=== PATIENT | female | born 1995 | race Caucasian/White ===

== ENCOUNTER 2017-01-30 17:41 | Emergency (ER) | payer BC, OTHER ==
[~2017-01-30] VITALS: Ht 165.1 cm; Wt 57.0 kg
[~2017-01-30 17:41] MED LIST: ALBUAER3 INH; JUNETAB PO; NITR100C4 PO
[2017-01-30 17:43] VITALS: BP 135/75; PULSE 93; RESP 20; TEMP 98.5; O2SAT 99
[2017-01-30 19:01] LABS: BLOOD, URINE TRACE (NEG); COMMENT (UR) CULT NOT INDICATED; CULTURE IF INDICATED CULT NOT INDICATED; GLUCOSE,URINE NEG (NEG); KETONE, URINE 10 mg/dL (NEG); MUCUS URINE FEW /lpf (OCC); NITRITE,URINE NEG (NEG); SQUAMOUS EPITHELIAL CELL URINE 8 /hpf (0-5)
[2017-01-30 19:03] LABS: URINE COLOR DARK-YELLOW (YELLW/STRAW)
--- NOTE | 2017-01-30 19:30 | RADRPT ---
EXAM DATE/TIME: 01/30/2017 19:14 [place] COMPARISON: No previous studies available for comparison. INDICATIONS : Bilateral flank pain. ORAL CONTRAST: No oral contrast ingested. RADIATION DOSE: 13.28 CTDIvol (mGy) MEDICAL HISTORY : Renal calculi. SURGICAL HISTORY : None. ENCOUNTER: Initial ACUITY: 3 days PAIN SCALE: 8/10 LOCATION: Bilateral flank TECHNIQUE: Volumetric scanning of the abdomen and pelvis was performed. Using automated exposure control and ad justment of the mA and/or kV according to patient size, radiation dose was kept as low as reasonably achievable to obtain optimal diagnostic quality images. DICOM format image data is available electro nically for review and comparison. FINDINGS: LOWER LUNGS: The visualized lower lungs are clear. LIVER: Homogeneous density without lesion. There is no dilation of the biliary tree. No calcified gallston es. SPLEEN: Normal size without lesion. PANCREAS: Within normal limits. KIDNEYS: Normal in size and shape. There is no mass, stone, or hydronephrosis. Both kidneys have slightly inc reased density in the medullary pyramid region and medullary calcinosis is not excludable. ADRENAL GLANDS: Within normal limits. VASCULAR: There is no aortic aneurysm. BOWEL/MESENTERY: The stomach, small bowel, and colon demonstrate no acute abnormality. There is no free intraperitone al air or fluid. The appendix is well-visualized, normal. ABDOMINAL WALL: Within normal limits. RETROPERITONEUM: There is no lymphadenopathy. BLADDER: No wall thickening or mass. REPRODUCTIVE: Within normal limits. INGUINAL: There is no lymphadenopathy or hernia. MUSCULOSKELETAL: No acute bony abnormality demonstrated. Mild S-shaped thoracolumbar curvature is present. CONCLUSION: 1. 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 Otherwise negative. No stone, obstruction or inflammatory change. 2. Mild scoliosis. Miller Fine MD on January 30, 2017 at 19:26 Board Certified Radiologist. This report was verified electronically.
[2017-01-30] MEDS ORDERED: SODIUM CHLORIDE 0.9% FLUSH 10 ML FLUSH IV FLUSH PRN (20:15)
--- NOTE | 2017-01-30 20:25 | PD ---
HPI Chief Complaint: Complaint Time Seen by Provider: 19:44 Travel History International Travel<30 days: No Contact w/Intl Traveler<30days: No Traveled to known affect area: No History of Present Illness HPI Patient is a 21-year-old female who presents to emergency room with complaints of urinary urgency and frequency as well as fever for the past 2 days. Patient reports that she has been having problems with UTIs, reports that she follows with the urologist (Dr. Muro) for this. Reports that she has prophylactic Macrobid for UTI which started 2 days ago with her onset of symptoms. Reports that she is having lower abdominal discomfort at this time. Reports nause with vomiting and diarrhea with her symptoms. Patient reports concern for possible recurrent UTI not treated with Macrobid. Patient reports that she is sexually active at this time, denies vaginal discharge or bleeding. PFSH Past Medical History Asthma: Yes Cancer: No Cardiovascular Problems: No Diabetes: No Diminished Hearing: No Endocrine: No Genitourinary: No Headaches: Yes (INTERMITANT) Hepatitis: No Hiatal Hernia: No Immune Disorder: No Kidney Stones: Yes Musculoskeletal: No Neurologic: No Psychiatric: No Reproductive: No Respiratory: No Immunizations Current: Yes Thyroid Disease: No Tetanus Vaccination: > 5 Years Influenza Vaccination: No ?: Not LMP: DEC 2016 Past Surgical History AICD: No Ear Surgery: Yes Joint Replacement: No Pacemaker: No Tympanostomy Tube: Yes Other Surgery: Yes (MARLENE EAR SX,LAPORSCOPIC ALSO) Social History Alcohol Use: No Tobacco Use: No Substance Use: No Allergies-Medications (Allergen,Severity, Reaction): Coded Allergies: penicillin G (Unverified Allergy, Severe, HIVES, 12/30/16) PER FATHER, PT IS ABLE TO TAKE AMOXICILLIN Reported Meds & Prescriptions Reported Meds & Active Scripts Active Nitrofurantoin Monohydrate Macrocrystals (Nitrofurantoin Monoh/Nitrofur Macro) 100 Mg Cap 100 Mg PO BID Reported Proair Hfa 8.5 GM Inh (Albuterol Sulfate) 90 Mcg/Act Aer 1 Puff INH DIRECTED PRN 108 mcg/actuation 06/06 (Norethindrone-Ethinyl Estradiol) 1-20 Mg-Mcg Tab 1 Tab PO DAILY Review of Systems General / Constitutional: No: Fever Eyes: No: Visual changes HENT: No: Headaches Cardiovascular: No: Chest Pain or Discomfort Respiratory: No: Shortness of Breath Gastrointestinal: Positive: Nausea, Vomiting, Diarrhea, Abdominal Pain Genitourinary: Positive: Urgency, Frequency, Hesitancy, No: Dysuria, Pelvic Pain, Flank Pain Musculoskeletal: No: Pain Skin: No Rash Neurologic: No: Weakness Psychiatric: No: Depression Endocrine: No: Polydipsia Hematologic/Lymphatic: No: Easy Bruising Physical Exam Narrative GENERAL: NAD, Nontoxic SKIN: Focused skin assessment warm/dry. HEAD: Atraumatic. Normocephalic. EYES: Pupils equal and round. No scleral icterus. No injection or drainage. ENT: No nasal bleeding or discharge. Mucous membranes pink and moist. NECK: Trachea midline. No JVD. CARDIOVASCULAR: Regular rate and rhythm. No murmur appreciated. RESPIRATORY: No accessory muscle use. Clear to auscultation. Breath sounds equal bilaterally. GASTROINTESTINAL: Abdomen soft, non-tender, nondistended. Hepatic and splenic margins not palpable. : Pelvic exam performed with RN at bedside, NO discharge or bleeding, no cmt or adnexal tenderness MUSCULOSKELETAL: No obvious deformities. No clubbing. No cyanosis. No edema. NEUROLOGICAL: Awake and alert. No obvious cranial nerve deficits. Motor grossly within normal limits. Normal speech. PSYCHIATRIC: Appropriate mood and affect; insight and judgment normal. Data Data Last Documented VS Vital Signs Date Time Temp Pulse Resp B/P (MAP) Pulse Ox O2 Delivery O2 Flow Rate FiO2 01/30/17 17:43 98.5 93 20 135/75 (95) 99 Orders Orders Urinalysis - C+S If Indicated (01/30/17 17:50) Ed Urine Pregnancytest Poc (01/30/17 17:50) Ct Abd/Pel W/O Iv Contrast (01/30/17 ) Complete Blood Count With Diff (01/30/17 20:05) Comprehensive Metabolic Panel (01/30/17 20:05) Iv Access Insert/Monitor (01/30/17 20:05) Sodium Chloride 0.9% Flush (Ns Flush) (01/30/17 20:15) Gc And Chlamydia Pcr (01/30/17 20:05) Wet Prep Profile (01/30/17 20:05) Radiology Film Requests (01/30/17 ) Labs Laboratory Tests Test 01/30/17 17:45 01/30/17 20:11 01/30/17 20:17 Urine Color DARK-YELLOW Urine Turbidity HAZY Urine pH 6.0 Urine Specific [place] 1.030 Urine Protein 30 mg/dL Urine Glucose (UA) NEG mg/dL Urine Ketones 10 mg/dL Urine Occult Blood TRACE Urine Nitrite NEG Urine Bilirubin NEG Urine Urobilinogen LESS THAN 2.0 MG/DL Urine Leukocyte Esterase NEG Urine RBC 2 /hpf Urine WBC 3 /hpf Urine Squamous Epithelial Cells 8 /hpf Urine Mucus FEW /lpf Microscopic Urinalysis Comment CULT NOT INDICATED Clue Cells (Wet Prep) NONE SEEN Vaginal Trichomonas (Wet Prep) NONE SEEN Vaginal Yeast (Wet Prep) NONE SEEN White Blood Count 11.3 TH/MM3 Red Blood Count 4.84 MIL/MM3 Hemoglobin 13.8 GM/DL Hematocrit 41.8 % Mean Corpuscular Volume 86.3 FL Mean Corpuscular Hemoglobin 28.5 PG Mean Corpuscular Hemoglobin Concent 33.0 % Red Cell Distribution Width 12.7 % Platelet Count 394 TH/MM3 Mean Platelet Volume 7.3 FL Neutrophils (%) (Auto) 61.2 % Lymphocytes (%) (Auto) 31.9 % Monocytes (%) (Auto) 4.7 % Eosinophils (%) (Auto) 1.6 % Basophils (%) (Auto) 0.6 % Neutrophils # (Auto) 6.9 TH/MM3 Lymphocytes # (Auto) 3.6 TH/MM3 Monocytes # (Auto) 0.5 TH/MM3 Eosinophils # (Auto) 0.2 TH/MM3 Basophils # (Auto) 0.1 TH/MM3 CBC Comment DIFF FINAL Differential Comment Blood Urea Nitrogen 12 MG/DL Creatinine 0.67 MG/DL Random Glucose 73 MG/DL Total Protein 7.8 GM/DL Albumin 4.0 GM/DL Calcium Level 9.2 MG/DL Alkaline Phosphatase 73 U/L Aspartate Amino Transf (AST/SGOT) 14 U/L Alanine Aminotransferase (ALT/SGPT) 17 U/L Total Bilirubin 1.1 MG/DL Sodium Level 140 MEQ/L Potassium Level 3.7 MEQ/L Chloride Level 106 MEQ/L Carbon Dioxide Level 24.6 MEQ/L Anion Gap 9 MEQ/L Estimat Glomerular Filtration Rate 112 ML/MIN MDM Medical Decision Making Medical Screen Exam Complete: Yes Emergency Medical Condition: Yes Interpretation(s) Vital Signs Date Time Temp Pulse Resp B/P (MAP) Pulse Ox O2 Delivery O2 Flow Rate FiO2 01/30/17 17:43 98.5 93 20 135/75 (95) 99 Differential Diagnosis Differential includes UTI, pyelonephritis, cervicitis, ovarian cysts Narrative Course Patient is a 21-year-old female who presents to emergency room with complaints of urinary urgency frequency and fever for the past 2 days. Patient is currently on Macrobid for the past 2 days for UTI prophylaxis as she reports that she has had multiple episodes of UTIs in the past. Patient is being followed by urology at this time. Laboratory Tests Test 01/30/17 17:45 Urine Color DARK-YELLOW (YELLW/STRAW) Urine Turbidity HAZY (CLEAR) Urine pH 6.0 (5.0-8.5) Urine Specific [place] 1.030 (1.002-1.035) Urine Protein 30 mg/dL (NEG-TRACE) Urine Glucose (UA) NEG mg/dL (NEG) Urine Ketones 10 mg/dL (NEG) Urine Occult Blood TRACE (NEG) Urine Nitrite NEG (NEG) Urine Bilirubin NEG (NEG) Urine Urobilinogen LESS THAN 2.0 MG/DL (LESS Urine Leukocyte Esterase NEG (NEG) Urine RBC 2 /hpf (0-3) Urine WBC 3 /hpf (0-5) Urine Squamous Epithelial Cells 8 /hpf (0-5) Urine Mucus FEW /lpf (OCC) Microscopic Urinalysis Comment CULT NOT INDICATED Last Impressions Abdomen/Pelvis CT 01/30/17 0000 Signed Impressions: Service Date/Time: Monday, January 30, 2017 19:14 - CONCLUSION: 1. 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 Otherwise negative. No stone, obstruction or inflammatory change. 2. Mild scoliosis. Miller Fine MD Pelvic exam performed - G/C pending. Patient with no adnexal or CMT tenderness. CBC, CMP pending CBC & BMP Diagram 01/30/17 20:17 Total Protein 7.8, Albumin 4.0, Calcium Level 9.2, Alkaline Phosphatase 73, Aspartate Amino Transf (AST/SGOT) 14 L, Alanine Aminotransferase (ALT/SGPT) 17, Total Bilirubin 1.1 H All labs and all studies reviewed with patient and her family members in detail. Copies of her studies were given to her discharge. BUN 12, creatinine 0.67, UA positive for trace occult blood, neg nitrites, neg leuk esterase, 3wbc. Patient currently on macrobid for the past 2 days- discussed need to continue marcrobid. \\ Last Impressions Abdomen/Pelvis CT 01/30/17 0000 Signed Impressions: Service Date/Time: Monday, January 30, 2017 19:14 - CONCLUSION: 1. 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 Otherwise negative. No stone, obstruction or inflammatory change. 2. Mild scoliosis. Miller Fine MD CT the abdomen and pelvis with possible medullary calcinosis of the kidneys which could be causing her symptoms of chronic UTIs. Patient will follow-up with a sheet metal technician as outpatient, she will return to the emergency room as needed. A radiology copy of her studies were given to her at discharge. Patient and her parents are happy with plan of care. Diagnosis Primary Impression: Flank pain Additional Impression: Medullary calcification of kidney Patient Instructions: General Instructions Additional Instructions: Please bring the copy of your labs and studies to your doctor's office for follow up Follow up with all cultures from today Return to ER as needed Return to ER if symptoms worsen or progress Please drink plenty of fluids Disposition: 01 DISCHARGE HOME Condition: Stable Ania Manzo DO Jan 30, 2017 20:24
[2017-01-30 20:49] LABS: AUTOMATED NEUTROPHIL # 6.9 TH/MM3 (1.8-7.7); BASOPHIL # 0.1 TH/MM3 (0-0.2); BASOPHIL % 0.6 % (0.0-2.0); EOSINOPHIL # 0.2 TH/MM3 (0-0.4); EOSINOPHIL % 1.6 % (0.0-4.0); HEMATOCRIT 41.8 % (35.0-46.0); HEMO FLAGS DIFF FINAL; LYMPH % 31.9 % (9.0-44.0); LYMPHOCYTE # 3.6 TH/MM3 (1.0-4.8); MEAN CELL VOLUME 86.3 FL (80.0-100.0); MEAN CORPUSCULAR HEMOGLOBIN 28.5 PG (27.0-34.0); MONO % 4.7 % (0.0-8.0); NEUT % 61.2 % (16.0-70.0); PLATELET COUNT 394 TH/MM3 (150-450); RED BLOOD COUNT 4.84 MIL/MM3 (4.00-5.30); RED CELL DISTRIBUTION WIDTH 12.7 % (11.6-17.2); WHITE BLOOD COUNT 11.3 TH/MM3 (4.0-11.0)
[2017-01-30 21:06] LABS: ANION GAP 9 MEQ/L (5-15); AST (GOT) 14 U/L (16-38); BICARBONATE 24.6 MEQ/L (21.0-32.0); BLOOD UREA NITROGEN 12 MG/DL (7-18); CHLORIDE 106 MEQ/L (98-107); GLOMERULAR FILTRATION RATE 112 ML/MIN (>89); POTASSIUM 3.7 MEQ/L (3.5-5.1); SODIUM (NA) 140 MEQ/L (136-145)
[2017-01-30 21:07] LABS: ALT (GPT) 17 U/L (9-42)
[2017-01-30 21:09] LABS: ALKALINE PHOSPHATASE 73 U/L (45-117); TOTAL BILIRUBIN ADULT 1.1 MG/DL (0.2-1.0)
[2017-01-30 22:17] LABS: CHLAMYDIA PCR NOT DETECTED (NOT DETECT); NEISSERIA PCR NOT DETECTED (NOT DETECT)
== END 2017-01-30 21:53 | disposition home or self-care (01) ==
LOC: NEPD 17:41
DX: R10.9 Unspecified abdominal pain (principal); N28.89 Other specified disorders of kidney and ureter; R35.0 Frequency of micturition; R50.9 Fever, unspecified; R11.2 Nausea with vomiting, unspecified; R19.7 Diarrhea, unspecified; J45.909 Unspecified asthma, uncomplicated; Z87.442 Personal history of urinary calculi
CPT/HCPCS: 74176; 80053; 81001; 84703; 85025; 87210; 87491; 87591